=== PATIENT | male | born 1965 | race Caucasian/White ===

== ENCOUNTER 2017-11-24 10:09 | Inpatient (IN) | payer MEDICAID ==
[~2017-11-24] VITALS: Ht 177.8 cm; Wt 138.2 kg
[~2017-11-24 10:09] MED LIST: ATOR20TA66 PO; METO-539 PO; RANI150T44 PO
[2017-11-24 13:59] VITALS: BP 141/52
[2017-11-24] MEDS ORDERED: RIVA10TA PO (15:02)
[2017-11-24] MEDS ORDERED: LORA-835 PO (15:04)
[2017-11-24] MEDS ORDERED: morphine 4 MG/ML inj SYRINge IV PRN ×2 (15:10)
[2017-11-24] MEDS ORDERED: ondansetron/PF 4mg/2ml inj IV PRN (15:10)
[2017-11-24] MEDS ORDERED: mag hydrox/Alum hydrox/simeth 30ml oral suspension PO PRN (15:10)
[2017-11-24] MEDS ORDERED: magnesium 4gm in 100ml NS 100 ML IV PRN (15:10)
[2017-11-24] MEDS ORDERED: acetaminophen 325mg tablet PO PRN ×2 (15:10)
[2017-11-24] MEDS ORDERED: magnesium 2GM in 50ml NS 50 ML IV PRN (15:10)
[2017-11-24] MEDS ORDERED: potassium Cl 20 mEq SR tablet PO PRN ×2 (15:10)
[2017-11-24] MEDS ORDERED: HYDROcodone/acetaminophen 5mg/325mg tablet PO PRN (15:10)
[2017-11-24] MEDS ORDERED: magnesium Cl slow-release 64mg tablet PO PRN (15:10)
[2017-11-24] MEDS ORDERED: magnesium hydroxide 30ml (MOM) UD suspension PO PRN (15:10)
[2017-11-24] MEDS ORDERED: potassium Cl 40MEQ/NS 500ml 500 ML IV PRN ×2 (15:10)
[2017-11-24] MEDS: normal saline 1000ml 1,000 ML IV SCH (16:22)
[2017-11-24] MEDS: vancomycin/NS 1 GM ADD-VANTAGE 250 ML IV SCH ×2 (16:23→17:05)
[2017-11-24 16:37] LABS: INR 1.2 INR
[2017-11-24] MEDS: HYDROcodone/acetaminophen 10/325mg tab PO PRN (18:04)
[2017-11-24] MEDS: piperacillin/tazo 3.375gm/50ml 50 ML IV SCH (18:05)
[2017-11-24 19:46] LABS: ALBUMIN 2.4 G/DL (3.4-5.0); ANION GAP 10 (8-16); BLOOD UREA NITROGEN 17 MG/DL (7-18); BUN/CREATININE RATIO 11.7 (5.4-32.0); CHLORIDE 101 MMOL/L (99-107); CREATININE 1.45 MG/DL (0.60-1.10); GLUCOSE 142 MG/DL (70-104); POTASSIUM 4.2 MMOL/L (3.5-5.1); SODIUM 135 MMOL/L (135-145); eGFR 51 ML/MIN
[2017-11-24 20:00] VITALS: BP 131/54
[2017-11-24] MEDS ORDERED: vancomycin/NS 1 GM ADD-VANTAGE 250 ML X 1 DOSE IV ONE (20:50)
[2017-11-24] MEDS ORDERED: temazepam 15mg capsule PO PRN (21:00)
[2017-11-25] VITALS: BP 133/57
[2017-11-25] MEDS: piperacillin/tazo 3.375gm/50ml 50 ML IV SCH ×3 (01:02→16:57)
[2017-11-25 05:24] LABS: HEMATOCRIT 27.9 % (42.0-52.0); HEMOGLOBIN 8.9 g/dl (14.0-17.9); MEAN CORPUSCULAR HEMOGLOBIN 24.4 PG (27.0-31.0); MEAN CORPUSCULAR HGB CONC 31.9 % (33.0-36.5); MEAN CORPUSCULAR VOLUME 76.5 FL (78-98); MEAN PLATELET VOLUME 8.2 FL (7.4-10.4); PLATELET COUNT 544 X10'3 (140-440); RED BLOOD COUNT 3.65 X10'6 (4.70-6.10); RED CELL DISTRIBUTION WIDTH 19.8 % (11.5-14.5); WHITE BLOOD COUNT 20.1 X10'3 (4.5-11.0)
[2017-11-25 06:12] LABS: ALANINE AMINOTRANSFERASE 35 U/L (12-78); ALBUMIN 2.2 G/DL (3.4-5.0); ALBUMIN/GLOBULIN RATIO 0.4 (1.1-1.5); ALKALINE PHOSPHATASE 89 IU/L (46-116); ANION GAP 8 (8-16); ASPARTATE AMINO TRANSFERASE 21 U/L (10-37); BILIRUBIN,TOTAL 0.4 MG/DL (0.1-1.0); BLOOD UREA NITROGEN 18 MG/DL (7-18); BUN/CREATININE RATIO 12.9 (5.4-32.0); CALCIUM 8.2 MG/DL (8.5-10.1); CHLORIDE 104 MMOL/L (99-107); GLUCOSE 120 MG/DL (70-104); MAGNESIUM 2.3 MG/DL (1.5-2.4); POTASSIUM 3.9 MMOL/L (3.5-5.1); SODIUM 137 MMOL/L (135-145); TOTAL CARBON DIOXIDE 24.9 MMOL/L (24-32); TOTAL PROTEIN 7.1 G/DL (6.4-8.2); eGFR 53 ML/MIN
[2017-11-25 07:00] VITALS: BP 115/67
[2017-11-25 07:27] LABS: ANISOCYTOSIS 2+; MICROCYTOSIS 2+; PLATELET ESTIMATE INCREASED; POIKILOCYTOSIS FEW; POLYCHROMASIA FEW; TARGET CELLS FEW; TOTAL CELLS COUNTED 100
[2017-11-25] MEDS ORDERED: enoxaparin 40mg/0.4ml syringe SQ SCH (08:00)
[2017-11-25] MEDS: K and/or MAG REPLACEMENT MC SCH (08:00)
[2017-11-25] MEDS: pantoprazole 40mg Tablet.DR PO SCH (08:29)
[2017-11-25] MEDS: HYDROcodone/acetaminophen 10/325mg tab PO PRN ×3 (08:34→20:18)
[2017-11-25] MEDS: normal saline 1000ml 1,000 ML IV SCH (10:25)
[2017-11-25] MEDS: rivaroxaban 10mg tablet PO SCH (10:25)
[2017-11-25 12:00] VITALS: BP 135/65
[2017-11-25 20:00] VITALS: BP 125/56
[2017-11-26] VITALS: BP 123/58
[2017-11-26] MEDS: piperacillin/tazo 3.375gm/50ml 50 ML IV SCH ×3 (00:10→16:11)
[2017-11-26 05:44] LABS: ALANINE AMINOTRANSFERASE 38 U/L (12-78); ALBUMIN 2.2 G/DL (3.4-5.0); ALBUMIN/GLOBULIN RATIO 0.4 (1.1-1.5); ALKALINE PHOSPHATASE 93 IU/L (46-116); ANION GAP 7 (8-16); ASPARTATE AMINO TRANSFERASE 14 U/L (10-37); BILIRUBIN,TOTAL 0.3 MG/DL (0.1-1.0); BLOOD UREA NITROGEN 19 MG/DL (7-18); BUN/CREATININE RATIO 14.7 (5.4-32.0); CALCIUM 8.4 MG/DL (8.5-10.1); CHLORIDE 106 MMOL/L (99-107); CREATININE 1.29 MG/DL (0.60-1.10); GLUCOSE 101 MG/DL (70-104); MAGNESIUM 2.1 MG/DL (1.5-2.4); POTASSIUM 4.7 MMOL/L (3.5-5.1); SODIUM 139 MMOL/L (135-145); TOTAL CARBON DIOXIDE 25.7 MMOL/L (24-32); TOTAL PROTEIN 7.1 G/DL (6.4-8.2); eGFR 58 ML/MIN
[2017-11-26 05:46] LABS: HEMATOCRIT 28.9 % (42.0-52.0); HEMOGLOBIN 9.2 g/dl (14.0-17.9); MEAN CORPUSCULAR HEMOGLOBIN 24.4 PG (27.0-31.0); MEAN CORPUSCULAR VOLUME 76.2 FL (78-98); MEAN PLATELET VOLUME 8.4 FL (7.4-10.4); PLATELET COUNT 562 X10'3 (140-440); RED BLOOD COUNT 3.79 X10'6 (4.70-6.10); RED CELL DISTRIBUTION WIDTH 20.6 % (11.5-14.5); WHITE BLOOD COUNT 14.7 X10'3 (4.5-11.0)
[2017-11-26 06:30] LABS: ANISOCYTOSIS 3+; MICROCYTOSIS 2+; PLATELET ESTIMATE INCREASED; POIKILOCYTOSIS FEW; TOTAL CELLS COUNTED 100
[2017-11-26 06:31] LABS: POLYCHROMASIA FEW
[2017-11-26 06:32] LABS: TARGET CELLS FEW
[2017-11-26] MEDS: normal saline 1000ml 1,000 ML IV SCH ×2 (07:09→14:51)
[2017-11-26] MEDS: HYDROcodone/acetaminophen 10/325mg tab PO PRN ×3 (07:59→18:51)
[2017-11-26] MEDS: pantoprazole 40mg Tablet.DR PO SCH (07:59)
[2017-11-26 08:00] VITALS: BP 156/71
[2017-11-26] MEDS: rivaroxaban 10mg tablet PO SCH (08:00)
[2017-11-26] MEDS: K and/or MAG REPLACEMENT MC SCH (08:00)
[2017-11-26 12:24] VITALS: BP 130/65
[2017-11-26] MEDS ORDERED: VANCOMYCIN LEVEL IV ONE (19:30)
[2017-11-26 20:00] VITALS: BP 116/54
[2017-11-27] VITALS: BP 155/86
[2017-11-27] MEDS: piperacillin/tazo 3.375gm/50ml 50 ML IV SCH ×3 (00:17→16:46)
[2017-11-27] MEDS: HYDROcodone/acetaminophen 10/325mg tab PO PRN ×2 (00:20→19:19)
[2017-11-27 04:43] LABS: HEMATOCRIT 30.4 % (42.0-52.0); HEMOGLOBIN 9.5 g/dl (14.0-17.9); MEAN CORPUSCULAR HEMOGLOBIN 24.3 PG (27.0-31.0); MEAN CORPUSCULAR HGB CONC 31.3 % (33.0-36.5); MEAN CORPUSCULAR VOLUME 77.7 FL (78-98); MEAN PLATELET VOLUME 8.5 FL (7.4-10.4); PLATELET COUNT 602 X10'3 (140-440); RED BLOOD COUNT 3.92 X10'6 (4.70-6.10); RED CELL DISTRIBUTION WIDTH 20.8 % (11.5-14.5); WHITE BLOOD COUNT 19.6 X10'3 (4.5-11.0)
[2017-11-27 05:32] LABS: ANISOCYTOSIS 2+; NUCLEATED RED BLOOD CELLS 1 /100WBC (0-0); PLATELET ESTIMATE INCREASED; TOTAL CELLS COUNTED 100
[2017-11-27 05:33] LABS: POLYCHROMASIA FEW; TARGET CELLS FEW
[2017-11-27 05:47] LABS: ALANINE AMINOTRANSFERASE 28 U/L (12-78); ALBUMIN 2.3 G/DL (3.4-5.0); ALBUMIN/GLOBULIN RATIO 0.5 (1.1-1.5); ALKALINE PHOSPHATASE 90 IU/L (46-116); ANION GAP 10 (8-16); ASPARTATE AMINO TRANSFERASE 10 U/L (10-37); BILIRUBIN,TOTAL 0.2 MG/DL (0.1-1.0); BLOOD UREA NITROGEN 18 MG/DL (7-18); BUN/CREATININE RATIO 16.4 (5.4-32.0); CALCIUM 8.7 MG/DL (8.5-10.1); CHLORIDE 106 MMOL/L (99-107); GLUCOSE 133 MG/DL (70-104); MAGNESIUM 2.3 MG/DL (1.5-2.4); POTASSIUM 4.6 MMOL/L (3.5-5.1); SODIUM 140 MMOL/L (135-145); TOTAL CARBON DIOXIDE 24.2 MMOL/L (24-32); TOTAL PROTEIN 7.4 G/DL (6.4-8.2); eGFR 70 ML/MIN
[2017-11-27 07:00] VITALS: BP 141/51
[2017-11-27] MEDS: K and/or MAG REPLACEMENT MC SCH (08:00)
[2017-11-27] MEDS: rivaroxaban 10mg tablet PO SCH (09:23)
[2017-11-27] MEDS: pantoprazole 40mg Tablet.DR PO SCH (09:23)
[2017-11-27 11:00] VITALS: BP 140/63
[2017-11-27] MEDS: normal saline 1000ml 1,000 ML IV SCH (16:41)
[2017-11-27 19:15] VITALS: BP 145/66
[2017-11-27 23:00] VITALS: BP 134/67
[2017-11-28] MEDS: piperacillin/tazo 3.375gm/50ml 50 ML IV SCH ×3 (00:20→16:04)
[2017-11-28] MEDS: HYDROcodone/acetaminophen 10/325mg tab PO PRN ×4 (00:48→20:12)
[2017-11-28 03:40] LABS: HEMATOCRIT 29.6 % (42.0-52.0); HEMOGLOBIN 9.3 g/dl (14.0-17.9); MEAN CORPUSCULAR HEMOGLOBIN 24.3 PG (27.0-31.0); MEAN CORPUSCULAR HGB CONC 31.4 % (33.0-36.5); MEAN CORPUSCULAR VOLUME 77.4 FL (78-98); MEAN PLATELET VOLUME 8.3 FL (7.4-10.4); PLATELET COUNT 672 X10'3 (140-440); RED BLOOD COUNT 3.83 X10'6 (4.70-6.10); RED CELL DISTRIBUTION WIDTH 20.3 % (11.5-14.5); WHITE BLOOD COUNT 16.7 X10'3 (4.5-11.0)
[2017-11-28 03:58] LABS: ALANINE AMINOTRANSFERASE 25 U/L (12-78); ALBUMIN 2.2 G/DL (3.4-5.0); ALBUMIN/GLOBULIN RATIO 0.4 (1.1-1.5); ALKALINE PHOSPHATASE 78 IU/L (46-116); ANION GAP 8 (8-16); ASPARTATE AMINO TRANSFERASE 11 U/L (10-37); BILIRUBIN,TOTAL 0.2 MG/DL (0.1-1.0); BLOOD UREA NITROGEN 19 MG/DL (7-18); BUN/CREATININE RATIO 18.1 (5.4-32.0); CALCIUM 8.5 MG/DL (8.5-10.1); CHLORIDE 108 MMOL/L (99-107); CREATININE 1.05 MG/DL (0.60-1.10); GLUCOSE 129 MG/DL (70-104); MAGNESIUM 2.1 MG/DL (1.5-2.4); POTASSIUM 4.5 MMOL/L (3.5-5.1); SODIUM 143 MMOL/L (135-145); TOTAL CARBON DIOXIDE 26.6 MMOL/L (24-32); TOTAL PROTEIN 7.1 G/DL (6.4-8.2); eGFR 74 ML/MIN
[2017-11-28 04:44] LABS: ANISOCYTOSIS 2+; PLATELET ESTIMATE INCREASED; TOTAL CELLS COUNTED 100
[2017-11-28 04:45] LABS: POLYCHROMASIA FEW; TARGET CELLS 1+
[2017-11-28 07:00] VITALS: BP 167/82
[2017-11-28] MEDS: K and/or MAG REPLACEMENT MC SCH (07:59)
[2017-11-28] MEDS: pantoprazole 40mg Tablet.DR PO SCH (08:14)
[2017-11-28] MEDS: rivaroxaban 10mg tablet PO SCH (08:14)
[2017-11-28 11:00] VITALS: BP 136/46
[2017-11-28] MEDS: normal saline 1000ml 1,000 ML IV SCH (16:11)
[2017-11-28 20:00] VITALS: BP 129/63
[2017-11-29] VITALS: BP 130/74
[2017-11-29] MEDS: piperacillin/tazo 3.375gm/50ml 50 ML IV SCH ×3 (00:14→15:35)
[2017-11-29] MEDS: HYDROcodone/acetaminophen 10/325mg tab PO PRN ×4 (00:14→18:45)
[2017-11-29 05:41] LABS: HEMATOCRIT 28.9 % (42.0-52.0); HEMOGLOBIN 9.2 g/dl (14.0-17.9); MEAN CORPUSCULAR HEMOGLOBIN 24.4 PG (27.0-31.0); MEAN CORPUSCULAR HGB CONC 31.9 % (33.0-36.5); MEAN CORPUSCULAR VOLUME 76.4 FL (78-98); MEAN PLATELET VOLUME 8.3 FL (7.4-10.4); PLATELET COUNT 589 X10'3 (140-440); RED BLOOD COUNT 3.78 X10'6 (4.70-6.10); RED CELL DISTRIBUTION WIDTH 20.7 % (11.5-14.5); WHITE BLOOD COUNT 14.9 X10'3 (4.5-11.0)
[2017-11-29 06:14] LABS: ALANINE AMINOTRANSFERASE 25 U/L (12-78); ALBUMIN 2.3 G/DL (3.4-5.0); ALBUMIN/GLOBULIN RATIO 0.5 (1.1-1.5); ALKALINE PHOSPHATASE 76 IU/L (46-116); ANION GAP 10 (8-16); ASPARTATE AMINO TRANSFERASE 25 U/L (10-37); BILIRUBIN,TOTAL 0.2 MG/DL (0.1-1.0); BLOOD UREA NITROGEN 22 MG/DL (7-18); BUN/CREATININE RATIO 18.6 (5.4-32.0); CALCIUM 8.7 MG/DL (8.5-10.1); CHLORIDE 105 MMOL/L (99-107); CREATININE 1.18 MG/DL (0.60-1.10); GLUCOSE 76 MG/DL (70-104); MAGNESIUM 2.2 MG/DL (1.5-2.4); SODIUM 140 MMOL/L (135-145); TOTAL CARBON DIOXIDE 24.9 MMOL/L (24-32); TOTAL PROTEIN 7.1 G/DL (6.4-8.2); eGFR 65 ML/MIN
[2017-11-29 06:17] LABS: POTASSIUM 4.7 MMOL/L (3.5-5.1)
[2017-11-29 06:26] LABS: ANISOCYTOSIS 3+; PLATELET ESTIMATE INCREASED; TOTAL CELLS COUNTED 100
[2017-11-29 06:27] LABS: POLYCHROMASIA FEW; TARGET CELLS 1+
[2017-11-29 07:00] VITALS: BP 144/77
[2017-11-29] MEDS: K and/or MAG REPLACEMENT MC SCH (08:00)
[2017-11-29] MEDS: pantoprazole 40mg Tablet.DR PO SCH (08:39)
[2017-11-29] MEDS: rivaroxaban 10mg tablet PO SCH (08:39)
[2017-11-29 12:10] VITALS: BP 126/64
[2017-11-29] MEDS: normal saline 1000ml 1,000 ML IV SCH (15:09)
[2017-11-29 20:00] VITALS: BP 154/68
[2017-11-30] VITALS: BP 129/53
[2017-11-30] MEDS: piperacillin/tazo 3.375gm/50ml 50 ML IV SCH ×2 (00:13→09:09)
[2017-11-30] MEDS: HYDROcodone/acetaminophen 10/325mg tab PO PRN ×4 (03:40→20:06)
[2017-11-30 07:00] VITALS: BP 127/82
[2017-11-30] MEDS: K and/or MAG REPLACEMENT MC SCH (08:00)
[2017-11-30] MEDS: rivaroxaban 10mg tablet PO SCH (09:09)
[2017-11-30] MEDS: pantoprazole 40mg Tablet.DR PO SCH (09:13)
[2017-11-30 09:15] LABS: HEMATOCRIT 31.6 % (42.0-52.0); MEAN CORPUSCULAR HEMOGLOBIN 24.4 PG (27.0-31.0); MEAN CORPUSCULAR HGB CONC 31.6 % (33.0-36.5); MEAN CORPUSCULAR VOLUME 77.3 FL (78-98); MEAN PLATELET VOLUME 7.7 FL (7.4-10.4); PLATELET COUNT 917 X10'3 (140-440); RED BLOOD COUNT 4.09 X10'6 (4.70-6.10); RED CELL DISTRIBUTION WIDTH 20.6 % (11.5-14.5); WHITE BLOOD COUNT 13.9 X10'3 (4.5-11.0)
[2017-11-30 09:27] LABS: ALBUMIN 2.5 G/DL (3.4-5.0); ANION GAP 7 (8-16); BLOOD UREA NITROGEN 19 MG/DL (7-18); BUN/CREATININE RATIO 16.4 (5.4-32.0); CALCIUM 8.6 MG/DL (8.5-10.1); CHLORIDE 105 MMOL/L (99-107); CREATININE 1.16 MG/DL (0.60-1.10); GLUCOSE 120 MG/DL (70-104); POTASSIUM 4.1 MMOL/L (3.5-5.1); SODIUM 141 MMOL/L (135-145); eGFR 66 ML/MIN
[2017-11-30 09:32] LABS: ANISOCYTOSIS 3+; LARGE PLATELETS FEW; PLATELET ESTIMATE INCREASED; TOTAL CELLS COUNTED 100
[2017-11-30 09:33] LABS: HYPOCHROMASIA 1+
[2017-11-30] MEDS: normal saline 1000ml 1,000 ML IV SCH ×2 (11:09→20:01)
[2017-11-30 12:00] VITALS: BP 153/65
[2017-11-30] MEDS ORDERED: iohexol 300mg/ml 100ml inj. ONE (13:26)
[2017-11-30 20:00] VITALS: BP 157/66
[2017-11-30] MEDS: cefepime 2g/NS 100ml ADVANTAGE 100 ML IV SCH (20:04)
[2017-11-30] MEDS: linezolid 600mg tablet PO SCH (20:06)
[2017-12-01] VITALS: BP 158/80
[2017-12-01] MEDS: HYDROcodone/acetaminophen 10/325mg tab PO PRN ×4 (05:20→21:22)
[2017-12-01 05:30] LABS: HEMATOCRIT 32.4 % (42.0-52.0); HEMOGLOBIN 10.1 g/dl (14.0-17.9); MEAN CORPUSCULAR HEMOGLOBIN 24.2 PG (27.0-31.0); MEAN CORPUSCULAR HGB CONC 31.3 % (33.0-36.5); MEAN CORPUSCULAR VOLUME 77.5 FL (78-98); MEAN PLATELET VOLUME 7.9 FL (7.4-10.4); RED BLOOD COUNT 4.18 X10'6 (4.70-6.10); RED CELL DISTRIBUTION WIDTH 20.6 % (11.5-14.5); WHITE BLOOD COUNT 13.8 X10'3 (4.5-11.0)
[2017-12-01 05:46] LABS: ALBUMIN 2.7 G/DL (3.4-5.0); ANION GAP 7 (8-16); BLOOD UREA NITROGEN 24 MG/DL (7-18); BUN/CREATININE RATIO 19.7 (5.4-32.0); CALCIUM 8.8 MG/DL (8.5-10.1); CHLORIDE 106 MMOL/L (99-107); CREATININE 1.22 MG/DL (0.60-1.10); GLUCOSE 97 MG/DL (70-104); MAGNESIUM 2.2 MG/DL (1.5-2.4); POTASSIUM 4.3 MMOL/L (3.5-5.1); SODIUM 143 MMOL/L (135-145); TOTAL CARBON DIOXIDE 30.4 MMOL/L (24-32); eGFR 62 ML/MIN
[2017-12-01 06:02] LABS: PLATELET COUNT 1000 X10'3 (140-440)
[2017-12-01 06:52] LABS: ANISOCYTOSIS 3+; EOSINOPHILS % (MANUAL) 6 % (0-6); LYMPHOCYTES % (MANUAL) 16 % (21-51); MONOCYTES % (MANUAL) 6 % (2-12); NEUTROPHILS % (MANUAL) 72 % (42-75); PLATELET ESTIMATE INCREASED; TOTAL CELLS COUNTED 100
[2017-12-01 06:53] LABS: POLYCHROMASIA 1+; TARGET CELLS 1+
[2017-12-01] MEDS: K and/or MAG REPLACEMENT MC SCH (08:00)
[2017-12-01 08:03] VITALS: BP 151/67
[2017-12-01] MEDS: rivaroxaban 10mg tablet PO SCH (08:09)
[2017-12-01] MEDS: linezolid 600mg tablet PO SCH ×2 (08:09→20:04)
[2017-12-01] MEDS: pantoprazole 40mg Tablet.DR PO SCH (08:09)
[2017-12-01] MEDS: cefepime 2g/NS 100ml ADVANTAGE 100 ML IV SCH ×2 (08:09→20:05)
[2017-12-01 12:00] VITALS: BP 147/79
[2017-12-01] MEDS: normal saline 1000ml 1,000 ML IV SCH (16:41)
[2017-12-01 20:00] VITALS: BP 154/68
[2017-12-01] MEDS: lactobacillus rhamnosus 10,000 MMU CELLS/CAPSULE PO SCH (20:05)
[2017-12-02] VITALS: BP 154/76
[2017-12-02] MEDS: HYDROcodone/acetaminophen 10/325mg tab PO PRN ×4 (02:50→20:57)
[2017-12-02 07:45] VITALS: BP 150/74
[2017-12-02] MEDS: K and/or MAG REPLACEMENT MC SCH (08:00)
[2017-12-02] MEDS: cefepime 2g/NS 100ml ADVANTAGE 100 ML IV SCH ×2 (08:25→20:56)
[2017-12-02] MEDS: rivaroxaban 10mg tablet PO SCH (08:27)
[2017-12-02] MEDS: linezolid 600mg tablet PO SCH ×2 (08:27→20:56)
[2017-12-02] MEDS: lactobacillus rhamnosus 10,000 MMU CELLS/CAPSULE PO SCH ×2 (08:28→20:56)
[2017-12-02] MEDS: pantoprazole 40mg Tablet.DR PO SCH (08:29)
[2017-12-02 11:55] VITALS: BP 162/64
[2017-12-02 20:00] VITALS: BP 137/65
[2017-12-02] MEDS: normal saline 1000ml 1,000 ML IV SCH (23:09)
[2017-12-03] VITALS: BP 119/61
[2017-12-03] MEDS: HYDROcodone/acetaminophen 10/325mg tab PO PRN ×4 (04:55→20:17)
[2017-12-03 08:00] VITALS: BP 125/70
[2017-12-03] MEDS: K and/or MAG REPLACEMENT MC SCH (08:00)
[2017-12-03] MEDS: cefepime 2g/NS 100ml ADVANTAGE 100 ML IV SCH (08:43)
[2017-12-03] MEDS: normal saline 1000ml 1,000 ML IV SCH (08:43)
[2017-12-03] MEDS: rivaroxaban 10mg tablet PO SCH (08:44)
[2017-12-03] MEDS: pantoprazole 40mg Tablet.DR PO SCH (08:44)
[2017-12-03] MEDS: lactobacillus rhamnosus 10,000 MMU CELLS/CAPSULE PO SCH ×2 (08:44→20:16)
[2017-12-03] MEDS: linezolid 600mg tablet PO SCH ×2 (08:44→20:17)
[2017-12-03 11:00] VITALS: BP 113/62
[2017-12-03 18:00] VITALS: BP 131/44
[2017-12-04] VITALS: BP 138/62
[2017-12-04] MEDS: normal saline 1000ml 1,000 ML IV SCH (03:26)
[2017-12-04] MEDS: HYDROcodone/acetaminophen 10/325mg tab PO PRN ×4 (03:28→19:48)
[2017-12-04 07:36] VITALS: BP 141/68
[2017-12-04] MEDS: K and/or MAG REPLACEMENT MC SCH (08:00)
[2017-12-04] MEDS: lactobacillus rhamnosus 10,000 MMU CELLS/CAPSULE PO SCH ×2 (10:08→19:48)
[2017-12-04] MEDS: pantoprazole 40mg Tablet.DR PO SCH (10:08)
[2017-12-04] MEDS: linezolid 600mg tablet PO SCH ×2 (10:09→19:48)
[2017-12-04] MEDS: rivaroxaban 10mg tablet PO SCH (10:09)
[2017-12-04 11:00] VITALS: BP 141/70
[2017-12-04 16:08] LABS: MEAN CORPUSCULAR HEMOGLOBIN 24.2 PG (27.0-31.0); MEAN CORPUSCULAR HGB CONC 31.3 % (33.0-36.5); MEAN CORPUSCULAR VOLUME 77.2 FL (78-98); MEAN PLATELET VOLUME 7.9 FL (7.4-10.4); PLATELET COUNT 891 X10'3 (140-440); RED BLOOD COUNT 4.14 X10'6 (4.70-6.10); RED CELL DISTRIBUTION WIDTH 20.7 % (11.5-14.5); WHITE BLOOD COUNT 9.9 X10'3 (4.5-11.0)
[2017-12-04 16:23] LABS: ALBUMIN 2.9 G/DL (3.4-5.0); ANION GAP 10 (8-16); BLOOD UREA NITROGEN 19 MG/DL (7-18); BUN/CREATININE RATIO 15.1 (5.4-32.0); CALCIUM 8.7 MG/DL (8.5-10.1); CHLORIDE 104 MMOL/L (99-107); CREATININE 1.26 MG/DL (0.60-1.10); GLUCOSE 100 MG/DL (70-104); POTASSIUM 4.3 MMOL/L (3.5-5.1); SODIUM 140 MMOL/L (135-145); TOTAL CARBON DIOXIDE 25.6 MMOL/L (24-32); eGFR 60 ML/MIN
[2017-12-04 16:27] LABS: ANISOCYTOSIS 3+; MICROCYTOSIS 1+; PLATELET ESTIMATE INCREASED; POIKILOCYTOSIS FEW; POLYCHROMASIA FEW; TARGET CELLS 1+; TOTAL CELLS COUNTED 100
[2017-12-04 20:00] VITALS: BP 148/80
[2017-12-05] VITALS: BP 136/77
[2017-12-05] MEDS: HYDROcodone/acetaminophen 10/325mg tab PO PRN ×4 (05:24→20:38)
[2017-12-05 07:40] VITALS: BP 152/80
[2017-12-05] MEDS: K and/or MAG REPLACEMENT MC SCH (08:00)
[2017-12-05] MEDS: lactobacillus rhamnosus 10,000 MMU CELLS/CAPSULE PO SCH ×2 (08:23→20:38)
[2017-12-05] MEDS: pantoprazole 40mg Tablet.DR PO SCH (08:23)
[2017-12-05] MEDS: amLODIPine 5mg tablet PO SCH (08:23)
[2017-12-05] MEDS: linezolid 600mg tablet PO SCH ×2 (08:24→20:37)
[2017-12-05] MEDS: rivaroxaban 10mg tablet PO SCH (08:24)
[2017-12-05 12:03] VITALS: BP 177/82
[2017-12-05 16:34] LABS: % IRON SATURATION 7 % (11-46); IRON 29 UG/DL (53-167); TOTAL IRON BINDING CAPACITY 412 UG/DL (259-388)
[2017-12-05 16:36] LABS: FERRITIN 59 NG/ML (26-388)
[2017-12-05 20:00] VITALS: BP 139/63
[2017-12-06] VITALS: BP 143/88
[2017-12-06] MEDS: HYDROcodone/acetaminophen 10/325mg tab PO PRN ×2 (02:56→08:01)
[2017-12-06 07:15] VITALS: BP 149/82
[2017-12-06] MEDS: K and/or MAG REPLACEMENT MC SCH (07:43)
[2017-12-06] MEDS: amLODIPine 5mg tablet PO SCH (08:00)
[2017-12-06] MEDS: pantoprazole 40mg Tablet.DR PO SCH (08:01)
[2017-12-06] MEDS: lactobacillus rhamnosus 10,000 MMU CELLS/CAPSULE PO SCH (08:01)
[2017-12-06] MEDS: linezolid 600mg tablet PO SCH (08:02)
[2017-12-06] MEDS: rivaroxaban 10mg tablet PO SCH (08:02)
[2017-12-06] MEDS ORDERED: VITC500T PO (11:33)
[2017-12-06] MEDS ORDERED: LINE600T6 PO (11:34)
[2017-12-06] MEDS ORDERED: FERR325T32 PO (11:34)
[2017-12-06] MEDS ORDERED: AMLO5TAB16 PO (11:34)
[2017-12-06] MEDS ORDERED: LACT1CAP26 PO (11:34)
[2017-12-06] MEDS ORDERED: HYDR-3972 PO (11:34)
[2017-12-06 12:13] VITALS: BP 137/73
== END 2017-12-06 14:45 | disposition home health service (06) | DRG 721 ==
LOC: SUR 3N 13:22
PROVIDERS: ADMIT Internal Medicine; ATTEND Family Medicine
DX: T81.4XXA Infection following a procedure, initial encounter (principal); Z68.41 Body mass index [BMI] 40.0-44.9, adult; I10 Essential (primary) hypertension; E66.01 Morbid (severe) obesity due to excess calories; L03.311 Cellulitis of abdominal wall; E78.5 Hyperlipidemia, unspecified; K21.9 Gastro-esophageal reflux disease without esophagitis; Y83.8 Other surgical procedures as the cause of abnormal reaction of the patient, or of later complication, without mention of misadventure at the time of the procedure; R79.89 Other specified abnormal findings of blood chemistry; D50.9 Iron deficiency anemia, unspecified; Z91.013 Allergy to seafood; Z79.899 Other long term (current) drug therapy; Z79.01 Long term (current) use of anticoagulants; Z79.82 Long term (current) use of aspirin; Z80.3 Family history of malignant neoplasm of breast; Z85.89 Personal history of malignant neoplasm of other organs and systems; Z86.010 Personal history of colon polyps; Z86.718 Personal history of other venous thrombosis and embolism; Z87.891 Personal history of nicotine dependence; Z90.5 Acquired absence of kidney; Z90.81 Acquired absence of spleen; Z93.3 Colostomy status; Y92.89 Other specified places as the place of occurrence of the external cause
CPT/HCPCS: 36415; 71045; 74176; 80048; 80053; 80202; 82607; 82728; 82746; 83540; 83550; 83605; 83735; 85025; 85610; 87040; 87070; 87077; 87186; 97116; 97161; 97530; A6213; A6223; A6253; A6255; A6258; A6266; A6446; A6449; J0692; J2543; J3370; J7030; Q9967

== ENCOUNTER 2021-03-17 11:26 | Day surgery (SDC) | payer MEDICAID ==
[~2021-03-17] VITALS: Ht 177.8 cm; Wt 157.0 kg
[~2021-03-17 11:26] MED LIST changes: +AMLO5TAB16 PO; -ATOR20TA66 PO; +FERR325T32 PO; +HYDR-3972 PO; +HYDR-4383 PO; +LACT1CAP26 PO; +LINE600T14 PO; +LORA-835 PO; -METO-539 PO; -RANI150T44 PO; +RIVA10TA PO; +VITC500T PO
[2021-03-17 11:50] VITALS: BP 163/84
[2021-03-17] MEDS ORDERED: heparin sodium, porcine/PF 100unit/ml 5ML syringe ONE (11:51)
[2021-03-17] MEDS ORDERED: midazolam 1 mg/ML 2ml injection ONE (11:52)
[2021-03-17] MEDS ORDERED: fentaNYL/PF 50MCG/1 ML 2ML syringe ONE ×2 (11:52→12:39)
[2021-03-17] MEDS ORDERED: LIDOcaine 1%/PF 5ML 10 MG/ML VIAL ONE (11:52)
[2021-03-17] MEDS ORDERED: FERR325T28 PO (12:12)
[2021-03-17] MEDS ORDERED: FLUO40CA10 PO (12:12)
[2021-03-17] MEDS ORDERED: ACET-1025 PO (12:12)
[2021-03-17] MEDS ORDERED: HYDR-4298 PO (12:12)
[2021-03-17] MEDS ORDERED: MULT-1085 PO (12:12)
[2021-03-17] MEDS ORDERED: MAGN400C PO (12:12)
[2021-03-17] MEDS ORDERED: hydrALAZINE 20mg/ml inj. IV ONE (12:37)
[2021-03-17 12:45] VITALS: BP 154/79
[2021-03-17 13:00] VITALS: BP 157/72
[2021-03-17 13:15] VITALS: BP 158/82
[2021-03-17 13:30] VITALS: BP 160/80
[2021-03-17 13:45] VITALS: BP 165/82
== END 2021-03-17 14:15 | disposition home or self-care (01) ==
LOC: SSTAY O 11:26
PROVIDERS: ATTEND Radiology Vascular & Interventional Radiology
DX: C49.4 Malignant neoplasm of connective and soft tissue of abdomen (principal); Z91.013 Allergy to seafood; Z79.899 Other long term (current) drug therapy
CPT/HCPCS: 36561; 76937; 77001; 99152; C1788; C1894; J0360; J1642; J2250; J3010; 99153; A6213